=== PATIENT | female | born 2000 | race Caucasian/White ===

== ENCOUNTER 2021-06-06 14:30 | Outpatient (CLI) | payer BC, SELFPAY ==
--- NOTE | ~2021-06-06 | US_ITS ---
EXAMINATION: US pelvic complete DATE: 06/06/2021 15:27 INDICATION: Pelvic pain Comparison:No prior studies for comparison. TECHNIQUE: Multiple transabdominal sonographic images of the pelvis performed. Patient could not tole rate transvaginal examination. FINDINGS: The uterus measures 5.7 x 3.8 x 3.3 cm. The endometrial complex measures 5 mm. The right ovary measures 2.3 x 1.3 cm and the left ovary measures 3.2 x 1.7 cm. Ovaries not well visu alized. There are small follicles in each ovary. Normal doppler signal in both ovaries. There is no free fluid in the pelvis. There are no abnormal masses seen on either side. IMPRESSION: 1. Unremarkable pelvic ultrasound. Reviewed, dictated and finalized at location A.
== END 2021-06-06 14:31 | disposition home or self-care (01) ==
PROVIDERS: PCP Family Medicine; Visit Provider Student in an Organized Health Care Education/Training Program
DX: R10.2 Pelvic and perineal pain (principal)
CPT/HCPCS: 76856